=== PATIENT | male | born 2000 | race Caucasian/White ===

== ENCOUNTER 2023-12-23 14:35 | Emergency (ER) | payer OTHER ==
[2023-12-23 14:45] VITALS: BP 125/81; PULSE 86; RESP 18; TEMP 97.7; BMI 19.2
[2023-12-23] MEDS ORDERED: ACETAMINOPHEN 500 MG TABLET (FP) ONE (16:00)
== END 2023-12-23 15:58 | disposition home or self-care (01) ==
LOC: FER 14:35
DX: S93.402A Sprain of unspecified ligament of left ankle, initial encounter (principal); V00.131A Fall from skateboard, initial encounter
CPT/HCPCS: 73610-TC-LT-FY; 73630-TC-LT; 99283-25